=== PATIENT | female | born 1975 | race Caucasian/White ===

== ENCOUNTER 2016-10-20 20:30 | Emergency (ER) | payer SELFPAY ==
--- NOTE | 2016-10-21 20:05 | ER ---
ADMIT: 10/20/2016 RM/LOC: [facility] MR#: [id number] [address] [id number] [place] [address] [place] [address] Emergency Room Report SEX: F AGE: 40 : 1975 DATE: 10/20/2016 TIME: 2030 hours. Please refer to my T-sheet for complete H and P. HISTORY OF PRESENT ILLNESS: Briefly, the patient is a 40-year-old who stepped on a nail while at work about an hour ago with her left shoe. She has no other complaints. She thinks she needs a tetanus shot. PHYSICAL EXAMINATION: VITAL SIGNS: Stable. EXTREMITIES: Her left foot has a puncture wound in the center the forefoot on the base. There is no pain on the top of the foot. She said it was a clean nail. She is neurovascularly intact distally. EMERGENCY DEPARTMENT COURSE: We cleansed with Ultra-Dex cleanse, saline wash, updated her tetanus, gave her dose of Keflex, she is ready for discharge. ASSESSMENT: Puncture wound from nail, left foot. PLAN: Keflex 500 mg b.i.d. for 5 days. Return if worse. Keep clean and dry. Follow up with Dr. Oliva as needed. Nghia Deluna MD/ gianna JOB #: [id number] CC: Nghia Deluna MD, Attending Physician Eula Oliva MD, Family Physician
== END 2016-10-20 21:17 | disposition home or self-care (01) ==
LOC: ER 20:30
DX: S91.332A Puncture wound without foreign body, left foot, initial encounter (principal); W45.0XXA Nail entering through skin, initial encounter; Y92.69 Other specified industrial and construction area as the place of occurrence of the external cause